=== PATIENT | female | born 1950 | race Caucasian/White ===

== ENCOUNTER 2017-04-19 13:47 | Emergency (ER) | payer MEDICARE, OTHER ==
[~2017-04-19] VITALS: Ht 152.4 cm; Wt 84.0 kg
[~2017-04-19 13:47] MED LIST: CHRO500T4 PO; FISH100020 PO; METO25 PO; MONT10TA2 PO; PANT40IN3 PO; SIMV20 PO; SOMA350T PO; VITA20003 PO; XANA1TAB6 PO; ZEGE20CA PO
[2017-04-19 13:49] VITALS: BP 125/58; PULSE 72; RESP 18; TEMP 99.4; O2SAT 95
--- NOTE | 2017-04-19 14:54 | PD ---
HPI Chief Complaint: Back/ Neck Pain or Injury Time Seen by Provider: 14:46 Travel History International Travel<30 days: No Contact w/Intl Traveler<30days: No Traveled to known affect area: No History of Present Illness HPI 66-year-old female presents the emergency Department with complaints of lower back pain more on the left than the right for the past 2 days. Patient states she's been nauseous for 1 week and had some anterior abdominal discomfort and cramping a few days ago. Patient states her urine is "dribbling ". This is different than normal. She denies vaginal symptoms. She's had some constipation but not now. She has no vomiting, no fever, no history of kidney stones. Pain is about a 7 out of 10. There is been no injury or fall or twist. Pain does not radiate into the legs. Patient placed to the left flank when she describes her back pain. Patient has multiple allergies. Please see list. PFSH Past Medical History Asthma: Yes Blood Disorders: No Anxiety: Yes Depression: Yes Heart Rhythm Problems: Yes (heart murmur) Cancer: Yes (skin cancer on left shoulder) Cardiovascular Problems: Yes (HEART MURMUR, BENIGN, TACHYCARDIA) High Cholesterol: No Chemotherapy: No Chest Pain: No Congestive Heart Failure: No COPD: No Diabetes: No Diminished Hearing: No Endocrine: No Fibromyalgia: Yes Gastrointestinal Disorders: Yes (GERD, hiatal hernia, esophagus needs widening occasionally, GASTROPARESIS) GERD: Yes Genitourinary: No Hepatitis: No Hiatal Hernia: Yes Hypertension: Yes Immune Disorder: Yes (SJOGREN'S SYNDROME, FIBROMYALGIA) Musculoskeletal: Yes (CHRONIC NECK PAIN,ARTHRITIS,FIBROMYALGIA) Neurologic: Yes (TIA 2003) Psychiatric: No Reproductive: No Respiratory: Yes (ASTHMA) Radiation Therapy: No Sleep Apnea: No Thyroid Disease: No ?: Not Menopausal: Yes Tubal Ligation: Yes Past Surgical History Abdominal Surgery: Yes (APPENDECTOMY 1991) AICD: No Appendectomy: Yes Body Medical Devices: CERVICAL SPINE PLATES AND SCREWS Gynecologic Surgery: Yes (TUBAL LIGATION 1989) Joint Replacement: No Neurologic Surgery: Yes (CERVICAL SPINE SURGERY WITH INSTRUMENTATION 2000) Pacemaker: No Thoracic Surgery: No Other Surgery: Yes Social History Alcohol Use: Yes (WEEKLY) Tobacco Use: No Substance Use: No Allergies-Medications (Allergen,Severity, Reaction): Coded Allergies: sulfanilamide (Unverified Allergy, Severe, 04/03/17) bacitracin (Unverified Allergy, Intermediate, Rash, 04/03/17) BLISTERS gramicidin D (Unverified Allergy, Intermediate, Rash, 04/03/17) BLISTERS neomycin (Unverified Allergy, Intermediate, Rash, 04/03/17) BLISTERS polymyxin B (Unverified Allergy, Intermediate, Rash, 04/03/17) BLISTERS levofloxacin (Unverified Allergy, Unknown, Rash, 04/03/17) nabumetone (Unverified Allergy, Unknown, Rash, 04/03/17) BLISTERS sulfamethoxazole (Unverified Allergy, Unknown, Rash, 04/03/17) SEVERE RASH trimethoprim (Unverified Allergy, Unknown, Rash, 04/03/17) SEVERE RASH Reported Meds & Prescriptions Reported Meds & Active Scripts Active Prednisone 20 Mg Tab 20 Mg PO BID 7 Days Reported Zegerid Otc (Omeprazole/Sodium Bicarbonate) 20 Mg Cap 20 Mg PO DAILY Pantoprazole Sodium 40 Mg Tab 1 Tab PO DAILY Vitamin D (Cholecalciferol) 2,000 Unit Tab 2,000 Unit PO DAILY Simvastatin 20 mg (Simvastatin) 20 Mg Tab 1 Tab PO HS Metoprolol Tartrate 25 mg (Metoprolol Tartrate) 25 Mg Tab 25 Mg PO BID Fish Oil ([place]-3 Fatty Acids) 1,000 Mg Cap 1,000 Mg PO DAILY Chromium Picolinate Ultra (Chromium Picolinate) 500 Mcg Tab 500 Mcg PO DAILY Xanax 1 mg (Alprazolam) 1 Mg Tab 1 Mg PO BID PRN Singulair (Montelukast Sodium) 10 Mg Tab 10 Mg PO HS Soma (Carisoprodol) 350 Mg Tab 350 Mg PO TID Review of Systems Except as stated in HPI: all other systems reviewed are Neg General / Constitutional: No: Fever, Chills Eyes: No: Visual changes HENT: No: Headaches Cardiovascular: No: Chest Pain or Discomfort Respiratory: No: Shortness of Breath Gastrointestinal: Positive: Nausea, Abdominal Pain (see history of present illness), No: Vomiting, Diarrhea Genitourinary: Positive: Urgency, Hesitancy, Dribbling, Pelvic Pain (see history present illness), Flank Pain (see history of present illness), No: Frequency, Dysuria, Nocturia, Hematuria Musculoskeletal: No: Pain Skin: No Rash Neurologic: No: Weakness Psychiatric: No: Depression Endocrine: No: Polydipsia Hematologic/Lymphatic: No: Easy Bruising Physical Exam Narrative GENERAL: Patient appears in no acute distress. SKIN: Warm and dry. Normal color. Normal turgor. HEAD: Atraumatic. Normocephalic. EYES: Pupils equal and round. No scleral icterus. No injection or drainage. ENT: No nasal bleeding or discharge. Mucous membranes pink and moist. Pharynx is clear. NECK: Trachea midline. Supple. CARDIOVASCULAR: Regular rate and rhythm. RESPIRATORY: No accessory muscle use. Clear to auscultation. Breath sounds equal bilaterally. GASTROINTESTINAL: Abdomen soft, moderate suprapubic tenderness, nondistended. No CVA tenderness. Hepatic and splenic margins not palpable. MUSCULOSKELETAL: Extremities without clubbing, cyanosis, or edema. No obvious deformities. Patient has increased tenderness with palpation of the left lower sacroiliac region, with question of contralateral straight leg raise pain on the left with extension of the right leg. There is no weakness in the lower extremities. NEUROLOGICAL: Awake and alert. No obvious cranial nerve deficits. Motor grossly within normal limits. Five out of 5 muscle strength in the arms and legs. Normal speech. PSYCHIATRIC: Appropriate mood and affect; insight and judgment normal. Data Data Last Documented VS Vital Signs Date Time Temp Pulse Resp B/P (MAP) Pulse Ox O2 Delivery O2 Flow Rate FiO2 04/19/17 16:07 04/19/17 13:49 99.4 72 18 95 Orders Orders Urinalysis - C+S If Indicated (04/19/17 14:49) Ketorolac Inj (Toradol Inj) (04/19/17 16:00) Labs Laboratory Tests Test 04/19/17 14:50 Urine Color YELLOW Urine Turbidity CLEAR Urine pH 5.5 Urine Specific [place] 1.012 Urine Protein NEG mg/dL Urine Glucose (UA) NEG mg/dL Urine Ketones NEG mg/dL Urine Occult Blood NEG Urine Nitrite NEG Urine Bilirubin NEG Urine Urobilinogen LESS THAN 2.0 MG/DL Urine Leukocyte Esterase SMALL Urine RBC 2 /hpf Urine WBC 3 /hpf Urine Squamous Epithelial Cells <1 /hpf Urine Transitional Epithelial Cells 1 /hpf Urine Hyaline Casts 3 /lpf Microscopic Urinalysis Comment CULT NOT INDICATED MDM Medical Decision Making Medical Screen Exam Complete: Yes Emergency Medical Condition: Yes Differential Diagnosis Low back pain. Nausea. Changes in urine. Flank pain. Possible renal colic. UTI. Narrative Course Patient is medically stable at time of exam. Urinalysis is sent to the lab. Urinalysis is negative for signs of infection or kidney stone. Patient is noted to be taking Soma and a pain pill for her neck pain which she gets chronically. Patient is given Toradol 60 mg IM. Patient will be placed on prednisone 20 mg twice a day 7 days. Patient continue her Soma and pain medicine as needed. Patient follow with her primary care physician next week if symptoms continue or return to emergency department as needed. Diagnosis Primary Impression: Sacroiliac inflammation Referrals: Primary Care Physician Patient Instructions: General Instructions Additional Instructions: Urinalysis is negative for signs of infection or kidney stone. Patient is noted to be taking Soma and a pain pill for her neck pain which she gets chronically. Patient is given Toradol 60 mg IM. Patient will be placed on prednisone 20 mg twice a day 7 days. Patient continue her Soma and pain medicine as needed. Patient follow with her primary care physician next week if symptoms continue or return to emergency department as needed. Med/Other Pt SpecificInfo: Prescription(s) given Scripts Prednisone (Prednisone) 20 Mg Tab 20 MG PO BID for 7 Days, TAB 0 Refills Prov: Natasha Nugent MD 04/19/17 Disposition: 01 DISCHARGE HOME Condition: Stable Chris Masterson Apr 19, 2017 14:54
[2017-04-19 15:18] LABS: BLOOD, URINE NEG (NEG); COMMENT (UR) CULT NOT INDICATED; CULTURE IF INDICATED CULT NOT INDICATED; GLUCOSE,URINE NEG (NEG); HYALINE CAST, URINE 3 /lpf (RARE); KETONE, URINE NEG (NEG); NITRITE,URINE NEG (NEG); PH, URINE 5.5 (5.0-8.5); SQUAMOUS EPITHELIAL CELL URINE <1 /hpf (0-5); TRANSITIONAL EPI CELLS, URINE 1 /hpf; URINE COLOR YELLOW (YELLW/STRAW)
[2017-04-19] MEDS ORDERED: PRED20 PO (15:52)
[2017-04-19] MEDS ORDERED: KETOROLAC TROMETHAMINE 60 MG/2 ML (IM) VIAL IM ONE (16:00)
== END 2017-04-19 16:07 | disposition home or self-care (01) ==
LOC: NEPK 13:47
DX: M46.1 Sacroiliitis, not elsewhere classified (principal)
CPT/HCPCS: 81001; 99283